=== PATIENT | female | born 1965 | race Caucasian/White ===

== ENCOUNTER 2020-08-12 07:44 | Emergency (ER) | payer BC, OTHER ==
[~2020-08-12] VITALS: Ht 157.5 cm; Wt 81.6 kg
[~2020-08-12 07:44] MED LIST: FLUO40CA8 PO; TRAM50TA2 PO
--- NOTE | 2020-08-12 08:00 | NUR ---
Patient to ER bed 3 to gown for evaluation. Side rails up. Report given to Gissell FLORES .
--- NOTE | 2020-08-12 08:15 | NUR ---
PT CAME IN FROM HOME STATING THAT SHE HAS FACIAL SWELLING AND TOOTH PAIN TO THE LOWER LEFT SIDE OF FACE. REPORTS HAVING A TOOTH PULLED A FEW WEEKS AGO. STATES SHE HAS A DENTAL APPT TOMORROW BUT THE PAIN HAS BECOME UNBEARABLE. PT IS AMBULATORY, AAOX4, V/S STABLE
[2020-08-12 08:18] VITALS: BP_SYST 134
--- NOTE | 2020-08-12 08:30 | NUR ---
ER DR. PAL AT THE BEDSIDE EXAMINING PT
[2020-08-12 09:07] LABS: BASOPHILS % (AUTO) 0.6 % (0.0-2.0); EOSINOPHILS # (AUTO) 0.2 K/uL (0.0-0.4); EOSINOPHILS % (AUTO) 3.2 % (0.0-4.0); HEMATOCRIT 40.5 % (36-48); HEMOGLOBIN 13.5 g/dL (12.0-16.0); LYMPHOCYTES # (AUTO) 0.9 K/uL (1.0-5.5); LYMPHOCYTES % (AUTO) 11.2 % (20.5-51.5); MEAN CORPUSCULAR HEMOGLOBIN 31 pg (27-31); MEAN CORPUSCULAR HGB CONC 33 % (32-36); MEAN CORPUSCULAR VOLUME 94 fL (79.0-98.0); MONOCYTES # (AUTO) 0.5 K/uL (0.0-1.0); MONOCYTES % (AUTO) 6.3 % (1.7-9.3); NEUTROPHILS # (AUTO) 6.1 K/uL (1.8-7.7); NEUTROPHILS % (AUTO) 78.7 % (40.0-70.0); PLATELET COUNT (AUTO) 195 K/uL (130-430); RED BLOOD CELL COUNT(AUTO) 4.32 MIL/uL (4.2-6.2); RED CELL DISTRIBUTION WIDTH 13.3 % (9.0-15.0); WHITE BLOOD COUNT (AUTO) 7.7 K/uL (4.8-10.8)
[2020-08-12 09:17] LABS: CALCIUM 8.4 mg/dL (8.4-11.0); CHLORIDE 108 mmol/L (98-107); CREATININE 0.76 mg/dL (0.55-1.30); GLUCOSE 95 mg/dL (70-99); POTASSIUM 3.9 mmol/L (3.5-5.1); SODIUM SERUM 141 mmol/L (136-145); UREA NITROGEN, BLOOD 12 mg/dL (8-21)
[2020-08-12 09:21] LABS: ALANINE AMINOTRANSFERASE 42 U/L (12-78); ALBUMIN 3.7 g/dL (3.4-4.8); ANION GAP < 3 (5-15); ASPARTATE AMINOTRANSFERASE 14 U/L (10-37); C-REACTIVE PROTEIN QUANT 0.4 mg/dL (0-0.5); GFR AFRICAN AMERICAN 101 mL/min (>90); TOTAL BILIRUBIN 0.3 mg/dL (0.0-1.0)
[2020-08-12] MEDS ORDERED: CAT1PAT TD (09:35)
[2020-08-12] MEDS ORDERED: KETOROLAC TROMETHAMINE 60 MG/2 ML VIAL IM ONE (09:45)
[2020-08-12] MEDS ORDERED: HYDROcodone/ACETAMIN 10-325 MG TAB PO ONE (09:45)
[2020-08-12] MEDS ORDERED: CLIN300C12 PO (09:49)
[2020-08-12] MEDS ORDERED: HYDR-3917 PO (10:24)
[2020-08-12 10:30] VITALS: BP_SYST 128
--- NOTE | 2020-08-12 10:30 | NUR ---
Patient given written and verbal discharge instructions and verbalizes understanding. ER MD discussed with patient the results and treatment provided. Patient in stable condition. ID arm band removed. Rx of CLINDAMYCIN AND NORCO given. Patient educated on pain management and to follow up with PMD. Pain Scale 2/10. Opportunity for questions provided and answered. Medication side effect fact sheet provided.
== END 2020-08-12 10:30 | disposition home or self-care (01) ==
LOC: SED 07:44
DX: K04.7 Periapical abscess without sinus (principal)
CPT/HCPCS: 36415; 80053; 83605; 85025; 86140; 96372; 99283; J1885